=== PATIENT | male | born 1940 | race Caucasian/White ===

== ENCOUNTER 2023-03-06 10:37 | Emergency (ER) | payer OTHER ==
[~2023-03-06] VITALS: Ht 180.3 cm; Wt 93.4 kg
[2023-03-06 11:19] LABS: Basophils # (auto) 0 10 ^3/uL (0-0.2); Basophils % (auto) 0.4 % (0.0-2.0); Eosinophils # (auto) 0.1 10 ^3/uL (0-0.8); Hematocrit 49.8 % (41.0-53.0); Hemoglobin 16.6 g/dL (13.5-17.5); Lymphocytes # (auto) 0.7 10 ^3/uL (0.4-5.4); Lymphocytes % (auto) 12.8 % (10.0-50.0); Mean Corpuscular Hemoglobin 29.5 pg (28.0-32.0); Mean Corpuscular Hgb Conc. 33.4 g/dL (32.0-36.0); Mean Corpuscular Volume 88.4 fL (80.0-100.0); Monocytes # (auto) 0.6 10 ^3/uL (0-1.3); Monocytes % (auto) 10.3 % (0.0-12.0); Neutrophils # (auto) 4.1 10 ^3/uL (1.6-8.6); Neutrophils % (auto) 75.5 % (37.0-80.0); Nucleated Red Blood Cells % 0.1 %; Red Blood Cells 5.64 10^6/uL (4.5-5.90); Red Cell Distribution Width 15.6 % (11.8-14.3); White Blood Cell 5.5 10^3/uL (4.4-10.8)
[2023-03-06 11:42] LABS: Alanine Aminotransferase 14 U/L (7-40); Albumin 4.4 g/dL (3.2-4.8); Alkaline Phosphatase 65 U/L (46-116); Aspartate Aminotransferase 12 U/L (13-40); BUN/Creatinine Ratio 13.2 (10.0-20.0); Bilirubin, Total 0.9 mg/dL (0.2-1.0); Blood Urea Nitrogen 12 mg/dL (9-23); Calcium 9.4 mg/dL (8.5-10.1); Chloride 105 mmol/L (98-107); Glucose 116 mg/dL (74-106); Potassium 4.3 mmol/L (3.5-5.1); Sodium 140 mmol/L (136-145); Total Protein 7.3 g/dL (5.7-8.2)
[2023-03-06 11:52] LABS: INR 1.05 (0.9-1.15)
[2023-03-06] MEDS ORDERED: IOHEXOL 350 MG/ML 100ML IJ ONE (14:15)
[2023-03-06 15:08] LABS: Urine Bacteria NONE SEEN /hpf (None Seen); Urine Blood Negative /uL (Negative); Urine Clarity Clear (Clear); Urine Color Yellow (Yellow); Urine Protein, UAD Negative (Negative); Urine Specific Gravity 1.013 (1.001-1.035); Urine Urobilinogen Normal (Negative); Urine WBC <1 /hpf (0 - 3); Urine pH 6.5 (5.0-8.0)
[2023-03-06 15:16] VITALS: BP 106/68; PULSE 89; RESP 18; TEMP 97.5; O2SAT 95
[2023-03-06] MEDS ORDERED: MECLIZINE HCL 25 MG TAB PO ONE (16:30)
[2023-03-06] MEDS ORDERED: ZOFR4T PO (17:06)
[2023-03-06] MEDS ORDERED: MECL1TAB42 PO (17:06)
== END 2023-03-06 18:45 | disposition home or self-care (01) ==
LOC: ER 10:37
DX: R42 Dizziness and giddiness (principal); G45.0 Vertebro-basilar artery syndrome; Z86.711 Personal history of pulmonary embolism; Z86.718 Personal history of other venous thrombosis and embolism
CPT/HCPCS: 36415; 70450; 70496; 80053; 81001; 82962; 84484; 85025; 85610; 93005; 99285; Q9967